=== PATIENT | female | born 1960 | race Caucasian/White ===

== ENCOUNTER → 2020-12-21 | Outpatient (CLI) | payer MEDICARE, BC ==
--- NOTE | 2020-12-21 15:30 | RAD ---
EXAM: Abdomen and pelvis CT without intravenous contrast. HISTORY: Pain. TECHNIQUE: Computed tomographic images of the abdomen and pelvis were obtained without contrast. Mult iplanar reformatting was performed. *One or more of the following individualized dose reduction techniques were utilized for this examina tion: 1. Automated exposure control. 2. Adjustment of the mA and/or kV according to patient size. 3. Use of iterative reconstruction technique. COMPARISON: None. FINDINGS: Evaluation of the lower thorax demonstrates minimal posterior dependent and basilar atelect asis. There is a small pericardial effusion. No suspicious hepatic lesion is seen. The collar, pancre as, spleen and adrenal glands are unremarkable. There is no nephrolithiasis or suspicious renal lesio n on this noncontrast exam. There is moderate colonic stool. There is severe irregular segmental wall thickening with surrounding inflammatory stranding, trace fluid and a complex extraluminal collections involving the distal desc ending colon. The extraluminal collections measure approximately 4.8 cm posterior and 5.1 cm medial t o this colonic segment. The bladder is nearly empty. There is a trace fluid collection along the ante rior aspect of the uterine fundus superior to the bladder. The aorta is normal in caliber. There are few suspected reactive lymph nodes within the left lower qu adrant. There is no suspicious osseous lesion. There are degenerative changes throughout the spine. IMPRESSION: 1. Segmental wall thickening involving the distal ascending colon with extensive surrounding inflamma tory stranding, trace free fluid and adjacent complex phlegmon/abscesses in the setting of perforatio n. This may be due to perforated diverticulitis. However, there are no identifiable diverticula and t his location. Therefore, the differential also includes segmental colitis or neoplasm with superimpos ed perforation. 2. Trace amount of free fluid or fluid collection anterior to the uterine fundus. Findings were discussed with LUIS Orozco at 1500 hours on 12/21/2020. Electronically signed by: Caridad Galvan MD (12/21/2020 3:28 PM) [id number]
== END ==
LOC: CT 11:03
PROVIDERS: ATTEND Physician Assistant Medical
DX: I31.3 Pericardial effusion (noninflammatory) (principal); J98.11 Atelectasis
CPT/HCPCS: 74176